=== PATIENT | female | born 1935 | race Caucasian/White ===

== ENCOUNTER 2017-03-13 09:18 | Outpatient (CLI) | payer MEDICARE, OTHER | END 2017-03-13 10:51 | LOC: D.MAMMO 09:18 | DX: Z12.31 Encounter for screening mammogram for malignant neoplasm of breast (principal) ==

== ENCOUNTER → 2018-03-18 18:02 | Outpatient (CLI) | payer MEDICARE, OTHER | END | disposition home or self-care (01) | LOC: D.MAMMO 15:15 | DX: Z12.31 Encounter for screening mammogram for malignant neoplasm of breast (principal) ==

== ENCOUNTER → 2020-03-21 11:19 | Outpatient (CLI) | payer MEDICARE, OTHER ==
--- NOTE | 2020-03-23 08:51 | EC ---
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 Ao 143 cm/sec RVOT 55 cm/sec RA cm/sec PA 77 cm/sec AV Gradient Peak 8.16 mmHg AV Mean 4.14 mmHg AV Area 1.9 cm MV Gradient Peak 8.73 mmHg MV Mean 3.82 mmHg MV Area cm COMMENTS: Services Engineer: 2 CLAUDIA NOVAK Inner Tube Inserter: 3 Dr. Marquez TAPE# PACS Pericardial Effusion N DATE OF SERVICE: Adequate 2D, color flow imaging, spectral Doppler, and M-Mode. LVH is present. LV internal dimension is normal. Wall motion is normal. EF is greater than or equal to 55%. Aortic valve is tricuspid. No evidence of stenosis by Doppler interrogation. There is mild plus apical thinning. Left atrium is normal at 3.9 cm. Mitral valve shows mitral annular calcification. This appears to be extending into the anterior leaflet. Mild to moderate MR. No significant MS by Doppler. Right-sided chambers are grossly normal. ECHOCARDIOGRAM REPORT [id number] DOUGLAS ROBERT Probably moderate TR. TRANSINT:[id number] Voice Confirmation ID: [id number] DOCUMENT ID: [id number] IRVIN HOWARD MD at 0851 CC: [id number] DICTATION DATE: 03/22/20 1514 WEB SITE DEVELOPER: 03/22/20 1610 DEP CLI 03/21/20 [id number] [place] [address]
== END | disposition home or self-care (01) ==
LOC: D.HCCECHO 11:19
PROVIDERS: ATTEND Internal Medicine Interventional Cardiology
DX: I10 Essential (primary) hypertension (principal)

== ENCOUNTER → 2020-03-22 17:20 | Outpatient (CLI) | payer MEDICARE, OTHER | END | disposition home or self-care (01) | LOC: D.LABREF 17:20 | PROVIDERS: ATTEND Orthopaedic Surgery | DX: M17.12 Unilateral primary osteoarthritis, left knee (principal) ==

== ENCOUNTER 2020-05-01 16:08 | Inpatient (IN) | payer MEDICARE, OTHER ==
[~2020-05-01] VITALS: Ht 162.6 cm; Wt 62.9 kg
[2020-05-22] MEDS ORDERED: COREG12.5 MG PO (10:51)
[2020-05-22] MEDS ORDERED: KLONOPIN1 MG PO (10:52)
[2020-05-22] MEDS ORDERED: ESTRACE1 MG PO (10:52)
[2020-05-22] MEDS ORDERED: COZAAR50 MG PO (10:53)
[2020-05-22] MEDS ORDERED: MYSOLINE 50 MG50 MG PO (10:53)
[2020-05-22] MEDS ORDERED: IPRATROPIUM BRO30 M1 NASAL (10:53)
[2020-05-22] MEDS ORDERED: POLYTRIM EYE DR10 ML EACH EYE (10:54)
[2020-05-23] MEDS ORDERED: MYSOLINE 50 MG50 MG PO (10:37)
[2020-05-23] MEDS ORDERED: GABAPENTIN100 MG PO (10:38)
[2020-05-23] MEDS ORDERED: BAYER CHEWABLE81 MG PO (10:38)
[2020-05-23] MEDS ORDERED: ASCORBIC ACID500 MG PO (10:40)
[2020-05-23 11:49] LABS: BASOPHILS 0.2 % (0-2); EOSINOPHILS 3.3 % (0-7); HEMATOCRIT 40.7 % (36.0-48.0); HEMOGLOBIN 13.4 g/dL (12-16); IMMATURE GRANULOCYTES 0.2 % (0-5); LYMPHOCYTES 16.4 % (15-50); MCH 30.9 pg (26.0-34.0); MCHC 32.9 g/dL (31.0-37.0); MEAN PLATELET VOLUME 10.4 fL (7.4-10.4); MONOCYTES 10.9 % (2-11); PLATELET COUNT 169 10x3/uL (130-400); RBC 4.33 10x6/uL (4.00-5.40); RDW 14.3 % (11.5-14.5); WBC 6.3 10x3/uL (4.8-10.8)
[2020-05-23 11:55] LABS: BILIRUBIN NEGATIVE (NEGATIVE); GLUCOSE NEGATIVE (NEGATIVE); KETONE NEGATIVE (NEGATIVE); NITRITE NEGATIVE (NEGATIVE); UROBILINOGEN NORMAL (NORMAL)
[2020-05-23 11:58] LABS: INR 1.1 (0.85-1.17); PROTIME 14.2 SECONDS (11.6-15.0)
[2020-05-23 12:01] LABS: ANION GAP 11.6 mmol/L (8-16); CALCIUM 8.9 mg/dL (8.5-10.1); CARBON DIOXIDE 31.7 mmol/L (21.0-32.0); POTASSIUM - SERUM 4.3 mmol/L (3.5-5.1)
[2020-05-29] VITALS (11 sets, daily range): BP systolic 135–188; BP diastolic 53–76; BMI 24.4; BMI 23.8
--- NOTE | 2020-05-29 13:15 | NUR ---
RECEIVED PATIENT FROM RECOVERY. PATIENT SLIGHTLY CONFUSED AND CALLING OUT. NO S/S OF ACUTE DISTRESS NOTED. VITALS STABLE. IV TO RIGHT FOREARM, 1/2 NS INFUSING @ 50ML/HR. SITE PATENT WITHOUT REDNESS OR SWELLING. AT BEDSIDE. PACEMAKER TO LEFT CHEST. ON 4L O2, NC O2 SAT @ 96%. BEDFAST AT THIS TIME. CALL LIGHT IN REACH. WILL CONTINUE TO MONITOR.
--- NOTE | 2020-05-29 19:21 | NUR ---
RESTING IN BED WITH EYES CLOSED. RESPIRATIONS EVEN AND UNLABORED. AT BEDSIDE. NO S/S OF ACUTE DISTRESS NOTED. BED ALARM ON. CALL LIGHT IN REACH. WILL CONTINUE TO MONITOR.
--- NOTE | 2020-05-29 19:24 | NUR ---
ON CPM AT THIS TIME
--- NOTE | 2020-05-29 19:27 | NUR ---
PATIENT RESTING IN BED WITH NO S/S OF DISTRESS AND DENIES NEEDS AT THIS TIME. BED IN LOWEST POSITION AND CALL LIGHT WITHIN REACH. VSS. ENCOURAGED THE PATIENT TO CALL IF SHE HAS NEEDS. WILL CONTINUE TO MONITOR.
--- NOTE | 2020-05-29 19:35 | NUR ---
ADMINISTERED NORCO PER THE PATIENT'S REQUEST. PATIENT DENIES OTHER NEEDS AT THIS TIME.
--- NOTE | 2020-05-29 20:48 | NUR ---
PATIENT NAUSEATED AND VOMITING AT THIS TIME. ADMINISTERED ZOFRAN PER ORDERS. CHANGED PATIENT'S LINENS AND GOWN. PATIENT DENIES OTHER NEEDS. WILL CONTINUE TO MONITOR.
--- NOTE | 2020-05-29 22:30 | NUR ---
PATIENT STATES NAUSEA IS GONE. ADMINISTERED MEDS PER ORDERS. WILL CONTINUE TO MONITOR.
[2020-05-30 00:37] VITALS: BP 124/51
--- NOTE | 2020-05-30 02:15 | NUR ---
PATIENT HAD INCONTIENT EPISODE. GAVE PATIENT CHG BATH AND CHANGED ALL LINENS AND GOWN. ALSO ASSISTED PATIENT WITH ORAL HYGIENE. PATIENT DENIES OTHER NEEDS. AT THIS TIME. BED IN LOWEST POSITION, CALL LIGHT WITHIN REACH, AND BED ALARM ON. ENCOURAGED THE PATIENT TO CALL IF SHE HAS NEEDS. WILL CONTINUE TO MONITOR.
[2020-05-30 04:29] VITALS: BP 131/50
--- NOTE | 2020-05-30 04:35 | NUR ---
PLACED PATIENT ON CPM TO LEFT KNEE
[2020-05-30 07:14] LABS: BASOPHILS 0.1 % (0-2); EOSINOPHILS 0.3 % (0-7); HEMATOCRIT 36.8 % (36.0-48.0); IMMATURE GRANULOCYTES 0.3 % (0-5); MCH 30.5 pg (26.0-34.0); MCHC 32.6 g/dL (31.0-37.0); MCV 93.6 fL (80.0-100.0); MEAN PLATELET VOLUME 10.7 fL (7.4-10.4); MONOCYTES 12.2 % (2-11); NEUTROPHILS 81.1 % (40-80); PLATELET COUNT 186 10x3/uL (130-400); RBC 3.93 10x6/uL (4.00-5.40); RDW 14.4 % (11.5-14.5); WBC 12.4 10x3/uL (4.8-10.8)
[2020-05-30 07:45] LABS: ANION GAP 11.1 mmol/L (8-16); CALCIUM 7.3 mg/dL (8.5-10.1); CREATININE - SERUM 1.3 mg/dL (0.6-1.3); POTASSIUM - SERUM 4.1 mmol/L (3.5-5.1)
[2020-05-30 08:26] VITALS: BP 149/43
[2020-05-30 10:22] VITALS: Ht 162.6 cm; Wt 62.9 kg
--- NOTE | 2020-05-30 11:00 | NUR ---
PT SLIGHTLY CONFUSED. BREATH SOUNDS CLEAR BILAT. IV TO RIGHT FOREARM SALINE LOCKED. DRESSING TO LEFT KNEE CDI. PT REPORTING PAIN OF 8/10, MEDICATED PER ORDERS, WILL CONTINUE TO MONITOR. BED LOW, CALL LIGHT IN REACH. NO OTHER NEEDS AT THIS TIME.
[2020-05-30 11:33] VITALS: BP 142/46
[2020-05-30 17:05] VITALS: BP 106/43
--- NOTE | 2020-05-30 19:30 | NUR ---
REPORT GIVEN BY ONESIMO WALTERS
[2020-05-30 20:00] VITALS: BP 137/53
--- NOTE | 2020-05-30 20:00 | NUR ---
ASSESSMENT COMPLETED. HEART SOUNDS WNL, LUNGS CLEAR. BOWEL SOUNDS HEARD. PT IS ON A REGULAR DIET. PT IS WBAT. PT IS ABLE TO GET UP BY HERSELF IN HER ROOM BUT SHE HAS BEEN ASKED AND ASKED TO PLEASE CALL NURSING STAFF FOR ASSIST TO PREVENT FALLS. SHE CONTINUES TO GET UP ALONE EVEN WITH HER BED ALARM IN PLACE. PT HAS A LEFT KNEE VINAY WRAP FROM SURGERY. SHE IS TOLERATING HER CPM WELL WITHOUT C/O. PT IS VERY [place] AND DOESN'T NOT HAVE HER HEARING AIDES IN. SHE WAS OFF O2 THIS AFTERNOON BUT WHEN VS TAKEN HER SATS WERE 88 AND O2 WAS REAPPLIED. SHE WAS ASKED NOT TO TAKE THIS OFF. PT STATES SHE USES HER IS EVERY HOUR WHEN AWAKE BUT DOES NOT DEMONSTRATE THIS TO ME. PT DOES HAVE HER SCD'S IN PLACE. THIS IS POST OP DAY1 AND HER CONFUSION IS SLOWLY CLEARING UP. WHEN PT IS UP SHE REQUIERES SBA. SHE HAS NOT C/O PAIN THIS SHIFT SO FAR. SHE DOES TELL ME SHE JUST DOESN'T KNOW WHAT'S GOING TO HAPPEN WHEN SHE GETS HOME. SHE STATES HER WILL TAKE CARE OF HER. PT DOES NOT HAVE IV ASSESS. CALL LIGHT IS WITH IN REACH FOR HER.
--- NOTE | 2020-05-30 21:30 | NUR ---
PT IS OFF THE CPM. SHE HAS ALREADY GOTTEN UP TO THE BR. NO C/O
--- NOTE | 2020-05-30 23:00 | NUR ---
BED ALARM WENT OFF ON THIS PT GETTING UP ALONE. NURSE IN ROOM AND PT SEEMED TO STILL BE ALITTLE CONFUSED. THE BSC WAS SET UP BY HER BED THIS TIME. SHE WAS PUT BACK TO BED WITH INSTRUCTIONS AGAIN TO CALL FOR ASSISTANCE WHEN GETTING UP.
--- NOTE | 2020-05-31 01:09 | NUR ---
RESTING QUIETLY AT THIS TIME.
--- NOTE | 2020-05-31 02:30 | NUR ---
PT ONCE AGAIN GOT UP TO GO TO THE BR WITH THE BED ALARM NOTIFYING NURSES.
--- NOTE | 2020-05-31 03:45 | NUR ---
PT PLACED ON CPM MACHINE. BEFORE THIS SHE GOT UP TO GO TO THE BSC.
[2020-05-31 05:00] VITALS: BP 154/60
--- NOTE | 2020-05-31 05:00 | NUR ---
PT IS DOING WELL ON HER CPM. HER SPEECH IS SLURRED FROM THE NORCO 5 SHE TOOK EARLIER.
--- NOTE | 2020-05-31 07:20 | NUR ---
PT IS SITTING UP TO SIDE OF BED. PT IS VERY [place]. RIGHT HEADING AID IS INPLACE. PT IS CONFUSED TO SITUATION AND PLACE AND TIME. PT IS ORIENTED TO SELF AT THIS TIME. PT REORIENTED TO SITUATION TIME AND PLACE. DRESSING TO LEFT KNEE IS NOTED AND IS CDI. FALL PRECAUTIONS ARE IN PLACE. PT DENIES PRESENCE OF NUMBNESS/TINGLING TO BLE. CAP REFILL IS <3 SECONDS TO BLE. PT DENIES PRESENCE OF PAIN/N/V AT THIS TIME. BED IS IN THE LOWEST POSITION. CALL LIGHT AND BEDSIDE TABLE ARE WITHIN REACH. SIDE RAILS X 2. WILL CONT TO MONITOR.
[2020-05-31 07:31] LABS: BASOPHILS 0.1 % (0-2); EOSINOPHILS 1.9 % (0-7); HEMOGLOBIN 11.6 g/dL (12-16); IMMATURE GRANULOCYTES 0.1 % (0-5); LYMPHOCYTES 8.6 % (15-50); MCH 30.9 pg (26.0-34.0); MCHC 33.1 g/dL (31.0-37.0); MCV 93.3 fL (80.0-100.0); MEAN PLATELET VOLUME 10.5 fL (7.4-10.4); MONOCYTES 12.6 % (2-11); NEUTROPHILS 76.7 % (40-80); PLATELET COUNT 162 10x3/uL (130-400); RBC 3.75 10x6/uL (4.00-5.40); RDW 14.4 % (11.5-14.5); WBC 9.9 10x3/uL (4.8-10.8)
[2020-05-31 07:42] LABS: ANION GAP 7.5 mmol/L (8-16); CALCIUM 7.9 mg/dL (8.5-10.1); CARBON DIOXIDE 29.5 mmol/L (21.0-32.0); CREATININE - SERUM 1.1 mg/dL (0.6-1.3)
[2020-05-31 07:51] VITALS: BP 104/71
--- NOTE | 2020-05-31 07:59 | OP ---
PATIENT NAME: DOUGLAS TAYLOR MEDICAL RECORD: [id number] :37 LOCATION:D. D.1213 ADMISSION DATE:05/29/20 SURGEON: AROLDO FREEMAN DO DATE OF OPERATION: 05/29/2020 PROCEDURE PERFORMED: Left total knee arthroplasty. PREOPERATIVE DIAGNOSIS: Left knee osteoarthritis. POSTOPERATIVE DIAGNOSIS: Left knee osteoarthritis. INDICATIONS: Ms. Taylor is an 84-year-old female who has dealt with this left knee pain for quite some time. She has exhausted all nonoperative options including injections, home therapy and is to a point where it was affecting her activities of daily living. She can barely ambulate without giving her any pain. She wants something done surgically and was aware that a total knee arthroplasty would be the best option for her. She is aware of the risks including infection, bleeding, damage to nerves and vessels, need for further surgery, fracture, failure of implants, blood clots, wound problems, and even and she signed a consent. SURGEON: Aroldo Freeman DO DESCRIPTION OF PROCEDURE: The patient received block by anesthesia in the preoperative area. She was taken to the operative suite, laid in supine position, given general anesthetic, and LMA was placed. She was given a gram of Ancef, 80 mg of gentamicin, and a gram of TXA. The left lower extremity was then prepped and draped in sterile fashion. Timeout was performed. Everyone was in agreement with the correct site, side, patient, and procedure. I then marked out the incision and covered in Ioban. I then used a #10 blade scalpel to carefully dissect down through the skin to the capsule and then used a fresh 10 blade, did a medial parapatellar approach. I then everted the patella, removed part of the fat pad. The patella was severely worn. Milled it down just enough to put a poly on and then flexed up the femur, removed the ACL and used a drill to get into the femoral canal. I then cut the distal femur through the guide and then exposed the proximal tibia into the same there, removed the menisci opending it out to extension, removed the rest of the menisci. I had to recut the tibia, it was not quite enough. I recut 2 mm more, then extension block fit very well. I then flexed the knee up and measured the femur to be 62.5. A 62.5 4-in-1 cutting block was then put on. Angle wing was used to ensure there was no notch and it was not. I then cut that and put a trial on and floated the tibia tray and poly into place and marked the rotation. I then drilled for the patella through the guide and lug holes on the femur, removed all the trials, exposed the tibia, sized it to be a 67, and reamed and punched it and then put extra holes in the tibia and then all the cement was mixing by Yajaira Trent. We then put cement in the tibia and on the implant, impacted in place, removed excess cement and packed the femur on, put a 10 poly in between and brought the knee out in extension, removed any other cement. I then cleaned off the patella and put cement on it and then on the implant, squeezed into place and removed excess cement. We then irrigated the knee with 10% povidone-iodine in 500 mL normal saline solution, let it set for 3 minutes and irrigated out with a liter of normal saline. I then trialed with a 10 poly and it fit very well. Once the cement had dried, had good stability in flexion and extension with varus valgus stress, put in anterior stabilized 10 E-poly and locked it into place with locking mechanism. Then put an Omar powder and OPERATIVE REPORT [id number] DOUGLAS TAYLOR vancomycin powder. She was given another gram of TXA. We then closed the capsule with #1 Vicryl in guymkq-zv-kuuyc fashion. This was performed by myself, Yajaira Trent, and Demetri Ni. Demetri is a certified surgical commissary assistant student and Yajaira is a certified surgical commissary assistant. They then closed the skin with 2-0 Vicryl in inverted interrupted fashion. ZipLine was placed on the knee and she was dressed with Adaptic, 4 x 4s, ABD, Webril, Juan A wrap and KAJAL stocking placed up to the knee. She was then awakened and taken to recovery in stable condition. Blood loss was approximately 200 mL. COMPLICATIONS: None. TRANSINT:[id number] Voice Confirmation ID: [id number] DOCUMENT ID: [id number] AROLDO FREEMAN DO at 0759 CC: [id number] DICTATION DATE: 05/29/20 1144 SORTING COWS WORKER: 05/29/202126 ADM IN [facility] [address] [facility]
[2020-05-31 10:59] VITALS: BP 110/49
--- NOTE | 2020-05-31 12:44 | NUR ---
PT SITTING IN BEDSIDE CHAIR AND REQUESTS ASSISTANCE WITH TRANSFERING BACK TO BED. PT ASK FOR PAIN MEDICATION. PT ASSISTED BACK TO BED. ALL FALL PRECAUTIONS IN PLACE. AT BEDSIDE. PT REFUSES PAIN MEDICATION ONCE LAYING IN BED AND QUICKLY GOES INTO A RESTING WITH EYES CLOSED STATE. RESPIRATIONS ARE EVEN AND UNLABORED. PT STATES "I AM JUST SO VERY TIRED. IM GOING TO SLEEP". PT AND PT SPOUSE DENY FURTHER NEEDS. BED IS IN THE LOWEST POSITION. CALL LIGHT AND BEDSIDE TABLE ARE WITIHN REACH. SIDE RAILS X 2. WILL CONT TO MONITOR.
--- NOTE | 2020-05-31 14:49 | NUR ---
PT REQUESTS ASSISTANCE TO BATHROOM AND THEN TO BEDSIDE CHAIR. WALKER USED FOR AMBULATION WITH STANDBY ASSIST. PT WITH SMALL CONTINENT VOID OF LIGHT YELLOW URINE. PT ASSISTED TO BEDSIDE CHAIR PER REQUEST. PT STATES "I FEEL SO MUCH BETTER AFTER THAT NAP. I WAS REALLY TIRED". ALL FALL PRECAUTIONS IN PLACE. SPOUSE IS AT BEDSIDE. PT DENIES FURTHER NEEDS. WILL CONT TO MONITOR.
[2020-05-31 15:16] VITALS: BP 162/55
--- NOTE | 2020-05-31 17:40 | NUR ---
CPM PLACED TO PT LEFT KNEE. PT TOLERATING WELL. PT DENIES PRESENCE OF PAIN AT THIS TIME. FALL PRECAUTIONS IN PLACE. BED IS IN THE LOWEST POSITION. CALL LIGHT AND BEDSIDE TABLE ARE WITHIN REACH. SIDE RAILS X 2. PT DENIES FURTHER NEEDS. WILL CONT TO MONITOR.
--- NOTE | 2020-05-31 19:49 | NUR ---
RESTING IN BED CPM IN USE, AROUSED EASILY REQUESTING CPM BE REMOVED INSTRUCTED HAD ABOUT 1 MORE HR, STATED OK, SEE SHIFT ASSESSMENT, CALL LIGHT IN REACH, BED FALL PRECAUTIONS AND BED ALARM IN USE
[2020-05-31 20:30] VITALS: BP 176/56
[2020-06-01 05:12] VITALS: BP 176/60
[2020-06-01 06:17] LABS: BASOPHILS 0.1 % (0-2); EOSINOPHILS 4.3 % (0-7); HEMATOCRIT 32.8 % (36.0-48.0); HEMOGLOBIN 10.7 g/dL (12-16); IMMATURE GRANULOCYTES 0.3 % (0-5); MCH 30.6 pg (26.0-34.0); MCHC 32.6 g/dL (31.0-37.0); MCV 93.7 fL (80.0-100.0); MEAN PLATELET VOLUME 10.5 fL (7.4-10.4); MONOCYTES 11.4 % (2-11); NEUTROPHILS 72.9 % (40-80); PLATELET COUNT 140 10x3/uL (130-400); RDW 14.3 % (11.5-14.5); WBC 7.7 10x3/uL (4.8-10.8)
[2020-06-01 06:28] LABS: ANION GAP 3.4 mmol/L (8-16); CALCIUM 7.7 mg/dL (8.5-10.1); CARBON DIOXIDE 32.4 mmol/L (21.0-32.0); CREATININE - SERUM 1.1 mg/dL (0.6-1.3); POTASSIUM - SERUM 3.8 mmol/L (3.5-5.1)
[2020-06-01 09:15] VITALS: BP 149/50
--- NOTE | 2020-06-01 09:43 | NUR ---
PT ALERT X 4. BREATH SOUNDS CLEAR BILAT. NO IV ACCESS AT THIS TIME. DRESSING TO LEFT KNEE CHANGED PER DR. FREEMAN. DISCUSSED REHAB VS HOME WITH PT WHILE CASE MANAGEMENT WAS IN THE ROOM. INFORMED PT OF PHYSICAL REQUIREMENTS FOR DC TO HOME. PT REPORTS STILL FEELING GROGGY FROM MEDS. AT BEDSIDE. BED LOW, CALL LIGHT IN REACH. NO OTHER NEEDS AT THIS TIME.
[2020-06-01] MEDS ORDERED: ELIQUIS2.5 MG PO (10:13)
[2020-06-01] MEDS ORDERED: ACETAMINOPHEN500 M1 PO (10:14)
[2020-06-01] MEDS ORDERED: KEFLEX500 MG PO (10:15)
--- NOTE | 2020-06-01 10:28 | MORECARE ---
CASE MANAGEMENT DISCHARGE SUMMARY PATIENT: DOUGLAS TAYLOR UNIT: [id number] ADM DATE: 05/29/20 AGE: 84 : 36 SEX: F ROOM/BED: D.1213 AUTHOR: LORRIE LEE PHYSICIAN: REFERRING PHYSICIAN: QASIM FREEMAN DO DATE OF SERVICE: 06/01/20 Discharge Plan Patient Name: DOUGLAS TAYLOR Facility: [facility]:[place] : 1935 Planned Disposition: Home with Home Health Anticipated Discharge Date: 06/01/20 Discharge Date: Expected LOS: 3 Initial Reviewer: [email or web address] Initial Review Date: 05/29/2020 Generated: 06/01/20 11:28 am DCPIA - Discharge Planning Initial Assessment Updated by [email or web address]: Carolyn Payne on 06/01/20 10:27 am * Is the patient Alert and Oriented? Yes * How many steps to enter\exit or inside your home? 2 w/rail * PCP Dr. Tran * Pharmacy [facility] * Preadmission Environment Home with Family * ADLs Partial Dependent * Partial ADLs (Assistance needed) Medication Management * Equipment Bedside Commode Rolling Walker Shower Chair * Other Equipment CPM, [facility] * List name and contact numbers for known caregivers / representatives who currently or will assist patient after discharge: Genaro Taylor, Spouse, * Verbal permission to speak to the caregivers and representatives has been obtained from the patient. Yes * Community resources currently utilized Other * Please name any agencies selected above. [facility] * Additional services required to return to the preadmission environment? Yes * Can the patient safely return to the preadmission environment? Yes * Has this patient been hospitalized within the prior 30 days at any hospital? No External Providers External Provider: [facility] Next Contact Date: Service Request Date: Service Type: Resolution: Reviewer: Comments: Patient Name: DOUGLAS TAYLOR Page [phone] at 1028 All edits/amendments must be made on the electronic document DICTATION DATE: 06/01/20 1028 NUCLEAR WEAPONS CUSTODIAN: JANENE 06/01/20 1028 RPT#: [id number] DC DATE: STATUS: ADM IN [facility] [address] [place] [address] END OF REPORT
--- NOTE | 2020-06-01 10:44 | MORECARE ---
CASE MANAGEMENT DISCHARGE SUMMARY PATIENT: DOUGLAS TAYLOR UNIT: [id number] ADM DATE: 05/29/20 AGE: 84 : 36 SEX: F ROOM/BED: D.1213 AUTHOR: ROSA,DOC PHYSICIAN: REFERRING PHYSICIAN: QASIM FREEMAN DO DATE OF SERVICE: 06/01/20 Discharge Plan Patient Name: DOUGLAS TAYLOR Facility: [facility]:[place] : 1935 Planned Disposition: Home with Home Health Anticipated Discharge Date: 06/01/20 Discharge Date: Expected LOS: 3 Initial Reviewer: [email or web address] Initial Review Date: 05/29/2020 Generated: 06/01/20 11:44 am Comments DCP- Discharge Planning Updated by [email or web address]: Carolyn Payne on 06/01/20 9:[address] Patient Name: DOUGLAS TAYLOR Admission Status: Urgent Accout number: [id number] Admission Date: 05-29-2020 : 1935 Admission Diagnosis: Attending: QASIM FREEMAN Current LOS: 3 Anticipated DC Date: 06-01-2020 Planned Disposition: Home with Home Health Primary Insurance: MEDICARE A & B Discharge Planning Comments: ~ 09:20: After obtaining verbal consent, CM met with patient and her spouse, Genaro Taylor, to discuss discharge planning / needs. Patient and spouse both insist their discharge plan is to go home with home health. Spouse states home environment is safe. States he can take care of his . Prior to hospitalization he assisted her with her medications. Spouse does the shopping and takes care of the household. Both spouse and patient stated they have a strong support system that includes their neighbors. Has a neighbor that is willing to come sit with the patient anytime her spouse needs to leave her alone. Dr. Freeman entered the room during CM assessment and discussed with patient that she would need to be able to ambulate 150' to be able to discharge to home with home health. Otherwise she will need rehab. Patient and spouse verbalized understanding. Patient's spouse signed CARIN for "Any home health" and [facility]. CM explained and spouse signed DC IMM. Copies on chart. After physical therapy this morning CM will find out final discharge plan. CM will continue to follow. ~ 10:20: CM received discharge orders. Patient will discharge to home with home health. CM called [facility], spoke with Crescencio, and [facility], spoke with Charlene, to find out which agency would be available to see patient tomorrow. Crescencio and Charlene are checking their staffing availability and will call CM back. [employer] Greeter: Carolyn Payne DCPIA - Discharge Planning Initial Assessment Updated by [email or web address]: Carolyn Payne on 06/01/20 10:27 am * Is the patient Alert and Oriented? Yes * How many steps to enter\\exit or inside your home? 2 w/rail * PCP Dr. Tran * Pharmacy [facility] * Preadmission Environment Home with Family * ADLs Partial Dependent * Partial ADLs (Assistance needed) Medication Management * Equipment Bedside Commode Rolling Walker Shower Chair * Other Equipment CPM, [facility] * List name and contact numbers for known caregivers / representatives who currently or will assist patient after discharge: Genaro Taylor, Spouse, * Verbal permission to speak to the caregivers and representatives has been obtained from the patient. Yes * Community resources currently utilized Other * Please name any agencies selected above. [facility] * Additional services required to return to the preadmission environment? Yes * Can the patient safely return to the preadmission environment? Yes * Has this patient been hospitalized within the prior 30 days at any hospital? No Last DP export: 06/01/20 9:28 a Patient Name: DOUGLAS TAYLOR Page [phone] at 1044 All edits/amendments must be made on the electronic document DICTATION DATE: 06/01/20 1044 PAGEANT DIRECTOR: JANENE 06/01/20 1044 RPT#: [id number] DC DATE: STATUS: ADM IN [facility] [address] [place] [address] END OF REPORT
--- NOTE | 2020-06-01 12:39 | NUR ---
DISCHARGE PAPERWORK SIGNED, ALL QUESTIONS ANSWERED. ESCORTED OUT VIA WHEELCHAIR.
--- NOTE | 2020-06-01 12:57 | MORECARE ---
CASE MANAGEMENT DISCHARGE SUMMARY PATIENT: DOUGLAS TAYLOR UNIT: [id number] ADM DATE: 05/29/20 AGE: 84 : 37 SEX: F ROOM/BED: D.1213 AUTHOR: LORRIE LEE PHYSICIAN: REFERRING PHYSICIAN: QASIM FREEMAN DO DATE OF SERVICE: 06/01/20 Discharge Plan Patient Name: DOUGLAS TAYLOR Facility: [facility]:[place] : 1935 Planned Disposition: Home with Home Health Anticipated Discharge Date: 06/01/20 Discharge Date: 06/01/2020 Expected LOS: 3 Initial Reviewer: [email or web address] Initial Review Date: 05/29/2020 Generated: 06/01/20 1:56 pm Comments DCP- Discharge Planning Updated by [email or web address]: Carolyn Payne on 06/01/20 11:[address] ~ 10:50: CM received call back from [facility] with [facility]. They are available to admit paitent to home health services tomorrow. CM informed patient and spouse. They verbalized understanding and satisfaction with discharge plan. CM faxed records to [facility] as requested. CM let Ray with [facility] know that patient will be admitted by [facility]. DCP- Discharge Planning Updated by [email or web address]: Carolyn Payne on 06/01/20 9:[address] Patient Name: DOUGLAS TAYLOR Admission Status: Urgent Accout number: [id number] Admission Date: 05-29-2020 : 1935 Admission Diagnosis: Attending: QASIM FREEMAN Current LOS: 3 Anticipated DC Date: 06-01-2020 Planned Disposition: Home with Home Health Primary Insurance: MEDICARE A & B Discharge Planning Comments: ~ 09:20: After obtaining verbal consent, CM met with patient and her spouse, Genaro Taylor, to discuss discharge planning / needs. Patient and spouse both insist their discharge plan is to go home with home health. Spouse states home environment is safe. States he can take care of his . Prior to hospitalization he assisted her with her medications. Spouse does the shopping and takes care of the household. Both spouse and patient stated they have a strong support system that includes their neighbors. Has a neighbor that is willing to come sit with the patient anytime her spouse needs to leave her alone. Dr. Freeman entered the room during CM assessment and discussed with patient that she would need to be able to ambulate 150' to be able to discharge to home with home health. Otherwise she will need rehab. Patient and spouse verbalized understanding. Patient's spouse signed CARIN for "[facility] home health" and [facility]. CM explained and spouse signed DC IMM. Copies on chart. After physical therapy this morning CM will find out final discharge plan. CM will continue to follow. ~ 10:20: CM received discharge orders. Patient will discharge to home with home health. CM called [facility], spoke with Crescencio, and [facility], spoke with Charlene, to find out which agency would be available to see patient tomorrow. Cresc[facility] and Charlene are checking their staffing availability and will call CM back. Industrial X Ray Operator: Carolyn Payne DCPIA - Discharge Planning Initial Assessment Updated by [email or web address]: Carolyn Payne on 06/01/20 10:27 am * Is the patient Alert and Oriented? Yes * How many steps to enter\\exit or inside your home? 2 w/rail * PCP Dr. Tran * Pharmacy [facility] * Preadmission Environment Home with Family * ADLs Partial Dependent * Partial ADLs (Assistance needed) Medication Management * Equipment Bedside Commode Rolling Walker Shower Chair * Other Equipment CPM, [facility] * List name and contact numbers for known caregivers / representatives who currently or will assist patient after discharge: Genaro Taylor, Spouse, * Verbal permission to speak to the caregivers and representatives has been obtained from the patient. Yes * Community resources currently utilized Other * Please name any agencies selected above. [facility] * Additional services required to return to the preadmission environment? Yes * Can the patient safely return to the preadmission environment? Yes * Has this patient been hospitalized within the prior 30 days at any hospital? No Coverage Notice Reviewer: [id number] - Carolyn Payne Notice Issued Date-Time: 06/01/2020 9:20 Notice Type: Patient Choice Letter Notice Delivered To: Family Member Relationship to Patient: Spouse Auto Body Straightener Name: Genaro Taylor Delivery Method: HAND - Hand Delivered Alma Days: Prior Verbal Notification: Recipient Understood Notice: Yes Recipient Signature: Yes Med Rec Note Co-signed by Attending: Coverage Notice Comment: [facility] Health Reviewer: [id number] - Carolyn Payne Notice Issued Date-Time: 06/01/2020 9:20 Notice Type: IM Discharge Notice Notice Delivered To: Family Member Relationship to Patient: Spouse Auto Body Straightener Name: Genaro Taylor Delivery Method: HAND - Hand Delivered Alma Days: Prior Verbal Notification: Recipient Understood Notice: Yes Recipient Signature: Yes Med Rec Note Co-signed by Attending: Coverage Notice Comment: Last DP export: 06/01/20 9:44 a Patient Name: DOUGLAS TAYLOR Page [id number] at 1257 All edits/amendments must be made on the electronic document DICTATION DATE: 06/01/20 1257 JAVA SQL DEVELOPER: JANENE 06/01/20 1257 RPT#: [id number] DC DATE:06/01/20 STATUS: DIS IN [facility] [address] [place] [address] END OF REPORT
== END 2020-06-01 12:40 | disposition home health service (06) | DRG 470 ==
LOC: D.SDCHOLD 05-23 10:00 → D.M3 05-29 05:57 → D.SDCHOLD 05-29 05:57 → D.M3 05-29 10:21 → D.SDCHOLD 05-29 12:10 → D.M3 06-01 12:40
PROVIDERS: Family Medicine Adult Medicine; ADMIT Orthopaedic Surgery; ATTEND Orthopaedic Surgery
PROC: 0SRD0J9 Replacement of Left Knee Joint with Synthetic Substitute, Cemented, Open Approach (ICD-10-PCS; principal; 2020-05-29 08:30)
DX: M17.12 Unilateral primary osteoarthritis, left knee (principal); I10 Essential (primary) hypertension; G62.9 Polyneuropathy, unspecified; F41.9 Anxiety disorder, unspecified; Z95.0 Presence of cardiac pacemaker

== ENCOUNTER 2020-06-19 20:09 | Emergency (ER) | payer MEDICARE, OTHER ==
[~2020-06-19] VITALS: Ht 162.6 cm; Wt 63.6 kg
[~2020-06-19 20:09] MED LIST: ACETAMINOPHEN500 M1 PO; ASCORBIC ACID500 MG PO; BAYER CHEWABLE81 MG PO; COREG12.5 MG PO; COZAAR50 MG PO; ELIQUIS2.5 MG PO; ESTRACE1 MG PO; GABAPENTIN100 MG PO; IPRATROPIUM BRO30 M1 NASAL; KEFLEX500 MG PO; KLONOPIN1 MG PO; MYSOLINE 50 MG50 MG PO; POLYTRIM EYE DR10 ML EACH EYE
[2020-06-19 20:18] VITALS: BP 149/59; Ht 162.6 cm; Wt 63.6 kg
[2020-06-19 21:07] LABS: BASOPHILS 0.3 % (0-2); EOSINOPHILS 1.6 % (0-7); HEMOGLOBIN 11.6 g/dL (12-16); IMMATURE GRANULOCYTES 0.3 % (0-5); LYMPHOCYTES 17.1 % (15-50); MCH 30.5 pg (26.0-34.0); MCHC 33.1 g/dL (31.0-37.0); MCV 92.1 fL (80.0-100.0); MEAN PLATELET VOLUME 9.5 fL (7.4-10.4); MONOCYTES 10.1 % (2-11); NEUTROPHILS 70.6 % (40-80); RDW 13.5 % (11.5-14.5); WBC 7.4 10x3/uL (4.8-10.8)
[2020-06-19 21:11] LABS: PLATELET COUNT 303 10x3/uL (130-400)
[2020-06-19 21:21] LABS: ANION GAP 1.7 mmol/L (8-16); CALCIUM 8.8 mg/dL (8.5-10.1); CARBON DIOXIDE 31.9 mmol/L (21.0-32.0); POTASSIUM - SERUM 4.6 mmol/L (3.5-5.1)
[2020-06-19 21:29] LABS: ALBUMIN 3.5 g/dL (3.4-5.0); BILIRUBIN - TOTAL 0.19 mg/dL (0.2-1.3); PROTEIN - SERUM 6.6 g/dL (6.4-8.2)
[2020-06-19] MEDS ORDERED: CHRONULAC30 ML PO (21:51)
[2020-06-19 23:21] LABS: BILIRUBIN NEGATIVE (NEGATIVE); KETONE NEGATIVE (NEGATIVE); NITRITE NEGATIVE (NEGATIVE); UROBILINOGEN NORMAL (NORMAL)
== END 2020-06-20 00:11 | disposition home or self-care (01) ==
LOC: D.ER 20:09
PROVIDERS: Family Medicine
DX: K59.00 Constipation, unspecified (principal); N18.9 Chronic kidney disease, unspecified; R73.9 Hyperglycemia, unspecified; E87.1 Hypo-osmolality and hyponatremia; I10 Essential (primary) hypertension; Z95.0 Presence of cardiac pacemaker

== ENCOUNTER 2020-07-30 12:48 | Emergency (ER) | payer MEDICARE, OTHER ==
[~2020-07-30] VITALS: Ht 162.6 cm; Wt 63.6 kg
[~2020-07-30 12:48] MED LIST changes: +CHRONULAC30 ML PO
[2020-07-30 13:11] VITALS: BP 169/61; Ht 162.6 cm; Wt 63.6 kg
[2020-07-30 14:12] LABS: BASOPHILS 0.2 % (0-2); EOSINOPHILS 1.9 % (0-7); HEMATOCRIT 33.8 % (36.0-48.0); HEMOGLOBIN 11.1 g/dL (12-16); IMMATURE GRANULOCYTES 0.3 % (0-5); LYMPHOCYTES 11.5 % (15-50); MCH 29.4 pg (26.0-34.0); MCHC 32.8 g/dL (31.0-37.0); MCV 89.7 fL (80.0-100.0); MEAN PLATELET VOLUME 9.5 fL (7.4-10.4); MONOCYTES 13.2 % (2-11); NEUTROPHILS 72.9 % (40-80); RBC 3.77 10x6/uL (4.00-5.40); RDW 13.1 % (11.5-14.5); WBC 6.3 10x3/uL (4.8-10.8)
[2020-07-30 14:13] LABS: PLATELET COUNT 197 10x3/uL (130-400)
[2020-07-30 14:21] LABS: CALC OSMOLALITY 276 mosm/kg (275-300); CALCIUM 9.1 mg/dL (8.5-10.1); CHLORIDE - SERUM 101 mmol/L (98-107); CREATININE - SERUM 0.8 mg/dL (0.6-1.3); GLUCOSE 110 mg/dL (74-106); SODIUM 138 mmol/L (136-145); UREA NITROGEN 12 mg/dL (7-18); eGFR NON AFRICAN AMERICAN 72 mL/min (90-120)
[2020-07-30 14:30] LABS: ALBUMIN 3.2 g/dL (3.4-5.0); ALKALINE PHOSPHATASE 82 U/L (30-120); ALT (SGPT) 24 U/L (10-68); AMYLASE - SERUM 28 U/L (25-115); BILIRUBIN - TOTAL 0.35 mg/dL (0.2-1.3); PROTEIN - SERUM 6.6 g/dL (6.4-8.2)
[2020-07-30 14:31] LABS: LIPASE 37 U/L (73-393); TROPONIN-I < 0.017 ng/mL (0.000-0.060)
== END 2020-07-30 15:56 | disposition home or self-care (01) ==
LOC: D.ER 12:48
PROVIDERS: Emergency Medicine
DX: K59.00 Constipation, unspecified (principal); I10 Essential (primary) hypertension; Z95.0 Presence of cardiac pacemaker

== ENCOUNTER → 2021-04-11 10:09 | Outpatient (CLI) | payer MEDICARE, OTHER ==
[2020-07-30 13:11] VITALS: BMI 24.0
== END | disposition home or self-care (01) ==
LOC: D.CT 10:09
PROVIDERS: ATTEND Nurse Practitioner Family
DX: S82.101A Unspecified fracture of upper end of right tibia, initial encounter for closed fracture (principal)